=== PATIENT | female | born 1950 | race African-American/Black ===

== ENCOUNTER 2024-04-21 14:49 | Emergency (ER) | payer MEDICARE, MEDICAID ==
[~2024-04-21] VITALS: Ht 165.1 cm; Wt 102.0 kg
[~2024-04-21 14:49] MED LIST: AMLO10TA80 PO; BENA1TAB19 PO; GLIP5TAB22 PO
[2024-04-21 14:51] VITALS: O2SAT 98
[2024-04-21] MEDS ORDERED: IBUPROFEN 600MG TABLET PO STA (17:33)
[2024-04-21] MEDS ORDERED: ACETAMINOPHEN 325MG TABLET PO STA (17:33)
[2024-04-21] MEDS ORDERED: IBUPROFEN 600MG TABLET PO NR (19:00)
[2024-04-21] MEDS: ACETAMINOPHEN 325MG TABLET PO NR (19:30)
[2024-04-21] MEDS: NAPROXEN 375MG TABLET PO NR (19:30)
[2024-04-21] MEDS ORDERED: NAPR-679 MT (19:39)
[2024-04-21] MEDS ORDERED: TRAM50TA3 MT (19:39)
[2024-04-21 19:45] VITALS: BP 136/78; PULSE 81; RESP 19; TEMP 36.61404; O2SAT 99
== END 2024-04-21 19:46 | disposition home or self-care (01) ==
LOC: ER 14:49
DX: M17.12 Unilateral primary osteoarthritis, left knee (principal); M71.22 Synovial cyst of popliteal space [Baker], left knee; Z98.890 Other specified postprocedural states
CPT/HCPCS: 73562; 93970; 99284